=== PATIENT | female | born 1990 | race Caucasian/White ===

== ENCOUNTER → 2017-03-07 | Outpatient (CLI) | payer OTHER ==
[2017-03-07 11:43] LABS: BACTERIA, URINE RARE /hpf; BILIRUBIN, URINE NEG (NEG); BLOOD, URINE NEG (NEG); GLUCOSE,URINE NEG (NEG); KETONE, URINE NEG (NEG); NITRITE,URINE NEG (NEG); SQUAMOUS EPITHELIAL CELL URINE <1 /hpf (0-5); URINE COLOR LIGHT-YELLOW (YELLW/STRAW); URINE LEUKOCYTE ESTERASE NEG (NEG)
[2017-03-07 11:44] LABS: AUTOMATED NEUTROPHIL # 3.1 TH/MM3 (1.8-7.7); BASOPHIL % 0.9 % (0.0-2.0); EOSINOPHIL # 0.1 TH/MM3 (0-0.4); EOSINOPHIL % 1.9 % (0.0-4.0); HEMATOCRIT 40.6 % (35.0-46.0); HEMOGLOBIN 14.2 GM/DL (11.6-15.3); LYMPH % 26.6 % (9.0-44.0); LYMPHOCYTE # 1.3 TH/MM3 (1.0-4.8); MEAN CELL VOLUME 91.2 FL (80.0-100.0); MEAN CORPUSCULAR HEMOGLOBIN 31.9 PG (27.0-34.0); MEAN CORPUSCULAR HGB CONC 34.9 % (32.0-36.0); MEAN PLATELET VOLUME 7.3 FL (7.0-11.0); MONOCYTE # 0.4 TH/MM3 (0-0.9); NEUT % 62.6 % (16.0-70.0); PLATELET COUNT 330 TH/MM3 (150-450); RED BLOOD COUNT 4.45 MIL/MM3 (4.00-5.30); RED CELL DISTRIBUTION WIDTH 12.5 % (11.6-17.2)
[2017-03-07 12:17] LABS: BICARBONATE 27.1 MEQ/L (21.0-32.0); BLOOD UREA NITROGEN 9 MG/DL (7-18); CALCIUM 9.3 MG/DL (8.5-10.1); CHLORIDE 104 MEQ/L (98-107); CREATININE 0.56 MG/DL (0.50-1.00); GLOMERULAR FILTRATION RATE 132 ML/MIN (>89); GLUCOSE,FASTING 90 MG/DL (74-99); SODIUM (NA) 139 MEQ/L (136-145)
== END ==
LOC: CPRE 11:05
PROVIDERS: ATTEND Obstetrics & Gynecology
DX: Z01.812 Encounter for preprocedural laboratory examination (principal); D27.0 Benign neoplasm of right ovary
CPT/HCPCS: 36415; 80048; 81001; 84703; 85025

== ENCOUNTER → 2017-03-13 | Day surgery (SDC) | payer OTHER ==
[~2017-03-13] VITALS: Ht 160 cm; Wt 54.7 kg
[~2017-03-13] MED LIST: *morphine SULFATE 10 MG/ML PERIprocedure ONLY ONE; ACETAMINOPHEN 1000 MG/100 ML 100 ML IV ONE; BUPIVACAINE/EPINEPHRINE 0.5% PF 30 ML VIAL ONE; CHLORHEXIDINE GLUCONATE 2 % 1 PACK (2 CLOTHS) TOPICAL PRN; DEXAMETHASONE SOD PHOS 4 MG/ML VIAL IV ONE; DO NOT ADM ANY ANTICOAGULANT DRUGS PRN; GLYCOPYRROLATE 1 MG/5 ML SYRINGE IV PUSH ONE; KETOROLAC TROMETHAMINE 30 MG/ML (IVP) VIAL IV PUSH ONE; LACTATED RINGER'S 1000 ML IV PRN; LIDOCAINE HCL 1% PF 5 ML SYRINGE OTHER ONE; METOPROLOL TARTRATE 25 MG TAB PO PRN; MIDAZOLAM HCL 2 MG/2 ML VIAL ONE; MORPHINE SULFATE 4 MG/ML INJ IV PUSH PRN; NEOSTIGMINE 5 MG/5 ML SYRINGE IV PUSH ONE; ONDANSETRON HCL 4 MG/2 ML VIAL IV ONE; ONDANSETRON HCL 4 MG/2 ML VIAL IV PUSH ONE; POVIDONE IODINE 5% (ANTISEPSIS KIT) 4 APPLICATIONS EACH NARE PRN; PROPOFOL 200 MG/20 ML AMP IV ONE; ROCURONIUM INJ 50 MG/5 ML SYRINGE IV PUSH ONE; SODIUM CHLORID 0.9% 500 ML IV PRN; ceFAZolin 1,000 MG/NS 100 ML IV SCH; oxyCODONE/ACETAMINOPHEN 10 MG/325 MG TAB PO ONE
--- NOTE | 2017-03-13 09:50 | HHI.PR ---
Immediate Post Op Note Procedure Date: Mar 13, 2017 Pre Op Diagnosis: (1) RLQ abdominal pain (2) Complex cyst of right ovary Post Op Diagnosis: (1) RLQ abdominal pain (2) Complex cyst of right ovary (3) Dermoid cyst of right ovary Surgeon: Bev Finnegan MD Carcass Trimmer(s): Johnny Garcia MD Procedure: exam under anesthesia, operative laparoscopy with laparoscopic right ovarian cystectomy Findings: enlarged 7-8cm right ovary with dermoid cyst, otherwise normal right fallopian tube, normal left ovary and fallopian tube, normal uterus and cervix Complications: none Specimen(s) removed: right ovarian cyst, suspected dermoid Estimated blood loss: 10 mL Anesthesia: General Drains: None Fluids: 1400 mL IVF Urinary Output (mLs): 300 Patient to: PACU Patient Condition: Good Bev Finnegan MD Mar 13, 2017 09:50
--- NOTE | 2017-03-13 10:59 | MP ---
cc: RACHNA HANLEY M.D. DATE OF SURGERY: March 13, 2017 PREOPERATIVE DIAGNOSIS 1. Right lower quadrant pain. 2. Complex cyst of right ovary. POSTOPERATIVE DIAGNOSIS 1. Right lower quadrant pain. 2. Complex cyst of right ovary. 3. Dermoid cyst of right ovary. INDICATIONS Tasneem Lozano is a 26-year-old 0, who was seen and evaluated in the office for complaint of persistent right lower quadrant pain and dyspareunia. On ultrasound imaging she was found to have an enlarged complex appearing right ovarian cyst that was suspicious for dermoid. She was counseled and desired surgical removal and as such she was scheduled. PROCEDURE PERFORMED 1. Exam under anesthesia. 2. Operative laparoscopy with right ovarian cystectomy. SURGEON Rachna Hanley MD CELLAR PUMPER SURGEON Loi Garcia MD ANESTHESIA General. ESTIMATED BLOOD LOSS 10 mL. IV FLUID REPLACEMENT 1400 mL. URINE OUTPUT 300 mL of clear urine draining in the Armenta bag prior to its removal in the OR. COMPLICATIONS None. COUNTS Sponge, lap, instrument, needle correct x2. PROPHYLAXIS Ancef 1 gram preoperatively was given and SCDs were on and functioning throughout the entire case. INTRAOPERATIVE FINDINGS Normal female external genitalia, cervix was smooth, on intra-abdominal survey, normal-appearing uterus, left fallopian tube and left ovary, right ovary was markedly enlarged approximately 7-8 cm in size. On entry into the cyst capsule sebaceous material and copious hair was found consistent with dermoid cyst. The right fallopian tube was within normal limits. SPECIMEN Right ovarian cyst. PROCEDURE IN DETAIL After reviewing the informed consent, the patient was taken to the operating suite where a time-out was performed to identify the patient, planned procedure and any known allergies to drugs or drug products. The patient was then placed in dorsal supine position and general anesthesia was administered without difficulty and found to be adequate. The patient was then gently elevated into low lithotomy position in Luigi stirrups. Exam under anesthesia was performed with results as listed above. The abdomen and perineum were then prepped and draped in normal sterile fashion. Attention was turned vaginally where a sponge stick was placed and Armenta catheter was placed using sterile technique. Attention was then turned abdominally where approximately 3 mL of 0.25% bupivacaine without epinephrine was injected at the base of the umbilicus. Scalpel was then used to make a 5-mm incision at this point and using direct visual entry technique the laparoscopic camera was introduced without complication. The gas was turned on, abdomen was insufflated. The patient was placed in slight Trendelenburg position and intra-abdominal survey was performed with results as above. Additional 5 mm right lower quadrant port was then placed and a 12-mm port was placed suprapubically. It was decided that an additional right mid quadrant port would be needed and 5 mm port was then placed at the site as well. The EndoCatch bag was introduced through the 12 mm port. The ovary was placed within this bag. The ovarian capsule was then opened using monopolar scissors. The cyst wall was then opened with copious sebaceous and hair material that was all caught within the EndoCatch bag. Decompression of the cyst was performed and the cyst wall was eventually able to be grasped and bluntly from the ovary itself. The entire cyst was excised successfully from the ovarian cortex without complication. The cyst and its contents were then placed in the EndoCatch bag which was successfully removed through the 12 mm incision site. Irrigation with suction was performed in the pelvis. Using the monopolar scissors hemostasis was ensured in the right ovary with excellent result noted. Surgicel powder was placed as was a layer of intercede over the right ovary. Copious irrigation with suction of the pelvis was performed with no contamination from the cyst contents noted. The suture ease device was then introduced through the 12-mm incision. The fascia was successfully closed with 0-Vicryl suture. The patient was then brought back into level position. The gas was turned off, the abdomen was desufflated. All trocars were removed. The skin was cleaned and dried. All laparoscopic trocar incision sites were closed with 4-0 Monocryl in subcuticular fashion with excellent hemostasis noted. Steri-Strips were placed. The sponge stick and Armenta were removed vaginally. The patient was brought back into dorsal supine position. She was awoken from anesthesia without complication and is resting in the Post Anesthesia Care Unit. DISPOSITION The patient will be discharged to home today. She has office followup in 1 week. MD SERGEI Pickard/VARSHA /9:51 AM /10:32 AM ALEXX
[2017-03-13 11:40] VITALS: BP 118/71; PULSE 77; RESP 18; TEMP 97.8; O2SAT 100
== END | disposition home or self-care (01) ==
LOC: HSDC 05:45 → EDUNIT# 07:30
PROVIDERS: ATTEND Obstetrics & Gynecology
DX: D27.0 Benign neoplasm of right ovary (principal); N94.10 Unspecified dyspareunia
CPT/HCPCS: 00840; 58662; 86850; 86900; 86901; 88307; C1765; J0131; J0690; J1100; J1885; J2250; J2270; J2405; J2710; J3010; J7120; 88304